=== PATIENT | female | born 1995 | race Caucasian/White ===

== ENCOUNTER 2018-04-07 12:59 | Emergency (ER) | payer OTHER ==
--- NOTE | 2018-04-07 13:04 | PDOC ---
Rapid Medical Evaluation Chief Complaint: Labor Assessment Medical Evaluation: Allergies Allergy/AdvReac Type Severity Reaction Status Date / Time shrimp Allergy Verified 11/09/17 14:28 04/07/18 13:02 pt states she is 25 weeks 3 days with lower abd pain. Pt had vaginal bleeding 3 days ago "similar to menstrual period". Pt denies bleeding now, did not call her OB. history of asthma. no acute distress in triage, cleared to go to labor and delivery for assessment. Pt denies headache or back pain. 04/07/18 15:00 Discharge Disposition - Diagnosis Preg complication NEC-unspec - Discharge Dispostion Disposition: HOME Condition at time of disposition: Stable - Referrals Referrals: Jamaal Guerrero MD [Staff Physician] - Bill Liu MD [Primary Care Provider] - - Patient Instructions Additional Instructions: DISCHARGE TO HOME CALL OWN [facility] LO[facility]ER AND MAKE APPOINTMENT TO BE SEEN TOMORROW NOTHING IN VAGINA COME TO HOSPITAL IF YOU HAVE CONTRACTIONS,VAGINAL BLEEDING ,YOU BREAK YOUR WATER OR IF YOU DO NOT FEEL THE BABY MOVING INCREASE WATER INTAKE - 8-10 GLASSES/DAY - Post Discharge Activity
[2018-04-07 14:47] VITALS: BP 140/67; PULSE 102; TEMP 98.1
[2018-04-07 14:58] LABS: URINE APPEARANCE CLEAR; URINE BILIRUBIN NEGATIVE (<2.0 mg/dL); URINE COLOR YELLOW; URINE GLUCOSE (UA) NEGATIVE (NEGATIVE); URINE KETONE NEGATIVE (NEGATIVE); URINE LEUK ESTERASE NEGATIVE (NEGATIVE); URINE NITRITE NEGATIVE (NEGATIVE); URINE PROTEIN NEGATIVE (NEGATIVE); URINE UROBILINOGEN NEGATIVE mg/dL (0.2-1.0)
== END 2018-04-07 15:30 | disposition home or self-care (01) ==
LOC: JER 12:59
DX: O26.892 Other specified pregnancy related conditions, second trimester (principal); R10.30 Lower abdominal pain, unspecified; Z3A.25 25 weeks gestation of pregnancy
CPT/HCPCS: 76801-TC; 76817-TC; 81003; 99281-25

== ENCOUNTER 2018-07-16 11:30 | Inpatient (IN) | payer OTHER ==
[2018-07-16] MEDS ORDERED: PROMETHAZINE HCL 25 MG/1 ML VIAL IVPUSH ONE (13:11)
[2018-07-16] MEDS ORDERED: BUTORPHANOL TARTRATE 1 MG/ML VIAL IVPUSH ONE ×2 (13:11→22:00)
[2018-07-16] MEDS ORDERED: DEXTROSE 5%-LACTATED RINGERS 1,000 ML IV SCH (13:15)
--- NOTE | 2018-07-16 13:17 | HP ---
Past Medical History - Primary Care Physician PCP:: Jamaal Guerrero - Admission Chief Complaint: 39 weeks, labor, obesity History of Present Illness: 23 yo f , 39 weeks, in labor, cx 4 cm, 80 vx -2 mi, bulging, fhr cat 1, irregular contraction History Source: Patient Limitations to Obtaining History: No Limitations - Past Medical History ...: 1 ...Para: 0 Psych: Yes: Depression - Past Surgical History Hx Myomectomy: No Hx Transabdominal Cerclage: No - Smoking History Smoking history: Never smoked - Alcohol/Substance Use Hx Alcohol Use: No - Social History History of Recent Travel: No Home Medications - Allergies Allergies/Adverse Reactions: Allergies Allergy/AdvReac Type Severity Reaction Status Date / Time shrimp Allergy Verified 04/07/18 14:07 shellfish Allergy Severe Swelling Uncoded 04/07/18 14:07 - Home Medications Home Medications: Ambulatory Orders NK [No Known Home Medication] 11/09/17 Review of Systems - Review of Systems Constitutional: reports: No Symptoms Eyes: reports: No Symptoms HENT: reports: No Symptoms Neck: reports: No Symptoms Cardiovascular: reports: No Symptoms Respiratory: reports: No Symptoms Gastrointestinal: reports: No Symptoms Genitourinary: reports: No Symptoms Breasts: reports: No Symptoms Reported Musculoskeletal: reports: No Symptoms Integumentary: reports: No Symptoms Neurological: reports: No Symptoms Endocrine: reports: No Symptoms Hematology/Lymphatic: reports: No Symptoms Psychiatric: reports: No Symptoms Physical Exam - Maternity Constitutional: Yes: Well Nourished, No Distress, Calm Eyes: Yes: WNL, Conjunctiva Clear, EOM Intact HENT: Yes: WNL, Atraumatic, Normocephalic Neck: Yes: WNL, Supple, Trachea Midline Cardiovascular: Yes: WNL, Regular Rate and Rhythm Breast(s): Yes: WNL - Abdominal Exam/OB Fundal Height: 40 Number of Fetuses: Single Presentation: Vertex Regularity: Irregular Intensity: Moderate Monitor Mode: External Heart Rate Location: LLQ Accelerations: Uniform Decelerations: None - Vaginal Exam/OB Vaginal Bleediing: Bloody Show Speculum Exam: No Dilatation (cm): 4 cm Effacement (%): 80 Amniotic Membrane Status: Bulging Presentation: Vertex/Position Station: -2 - Physical Exam Musculoskeletal: Yes: WNL Extremities: Yes: WNL Edema: LLE: Trace, RLE: Trace Deep Tendon Reflex Grade: Normal +2 Psychiatric: Yes: WNL Hemorrhage Risk Assessment - Risk Factors Medium Risk Factors: Yes: None High Risk Factors: Yes: Active bleeding on admission Risk Score: 3 Risk Level: High Risk Problem List - Problems (1) with 39 completed weeks gestation Code(s): Z3A.39 - 39 WEEKS GESTATION OF (2) First stage of labor established Code(s): HCN8143 - (3) Obesity Code(s): E66.9 - OBESITY, UNSPECIFIED Qualifiers: Obesity type: due to excess calories (4) Depression Code(s): F32.9 - MAJOR DEPRESSIVE DISORDER, SINGLE EPISODE, UNSPECIFIED Assessment/Plan admit, fhm, pain management, anticipate vaginal delivery
[2018-07-16 13:29] VITALS: BMI 45.1
[2018-07-16 13:32] LABS: BASO % 0.2 % (0-2.0); EOS % 1.1 % (0-4.5); HEMATOCRIT 33.5 % (32.4-45.2); HEMOGLOBIN 10.7 GM/dL (10.7-15.3); LYMPH % 24.2 % (8-40); MCH 23.3 pg (25.7-33.7); MCHC 31.9 g/dl (32.0-36.0); MEAN CELL VOLUME 72.8 fl (80-96); MONO % 4.4 % (3.8-10.2); NEUT % 70.1 % (42.8-82.8); PLATELET COUNT 264 K/MM3 (134-434); RDW 16.2 % (11.6-15.6); WHITE BLOOD COUNT 7.8 K/mm3 (4.0-10.0)
[2018-07-16 13:52] LABS: INR 0.97 (0.83-1.09); PROTHROMBIN TIME (PATIENT) 11.5 SEC (9.7-13.0)
[2018-07-16 13:55] LABS: ACTIVATED PTT 29.1 SECONDS (25.2-36.5)
[2018-07-16 14:02] LABS: ANION GAP 7 MMOL/L (8-16); BLOOD UREA NITROGEN 4 mg/dL (7-18); CALCIUM 8.9 mg/dL (8.5-10.1); CHLORIDE 105 mmol/L (98-107); CO2 24 mmol/L (21-32); CREATININE 0.4 mg/dL (0.55-1.3); GLUCOSE,RANDOM 101 mg/dL (74-106); POTASSIUM 4.1 mmol/L (3.5-5.1); SODIUM 137 mmol/L (136-145)
[2018-07-16 14:38] LABS: GAMMA GLUTAMYL TRANSPEPTIDASE 17 U/L (5-85); SGOT/AST 11 U/L (15-37); SGPT/ALT 12 U/L (13-61); URIC ACID 4.6 mg/dL (2.6-7.2)
[2018-07-16 14:39] LABS: EPI CELLS 7.6 /HPF (0-5); URINE APPEARANCE CLOUDY; URINE BACTERIA 256.4 /hpf (NEGATIVE); URINE BILIRUBIN NEGATIVE (NEGATIVE); URINE CASTS 35 /hpf (0-8); URINE COLOR DK YELLOW; URINE GLUCOSE (UA) NEGATIVE (NEGATIVE); URINE KETONE TRACE (NEGATIVE); URINE LEUK ESTERASE 2+ (NEGATIVE); URINE NITRITE NEGATIVE (NEGATIVE); URINE PROTEIN 1+ (NEGATIVE); URINE RBC 2 /hpf (0-4); URINE WBC 39 /hpf (0-5)
--- NOTE | 2018-07-16 19:16 | PN ---
Progress Note (short form) - Note Progress Note: cx 6 cm , 100 vx -2 ,mi . arom , light mec scalp electrode applied , revaluate in 1/2 hour Problem List - Problems (1) with 39 completed weeks gestation Code(s): Z3A.39 - 39 WEEKS GESTATION OF (2) First stage of labor established Code(s): [id number] - (3) Obesity Code(s): E66.9 - OBESITY, UNSPECIFIED Qualifiers: Obesity type: due to excess calories (4) Depression Code(s): F32.9 - MAJOR DEPRESSIVE DISORDER, SINGLE EPISODE, UNSPECIFIED
[2018-07-16] MEDS ORDERED: PROMETHAZINE HCL 25 MG/1 ML VIAL ONE ×2 (19:34→21:02)
[2018-07-16] MEDS ORDERED: BUTORPHANOL TARTRATE 2 MG/ML VIAL ONE ×3 (19:34→21:02)
--- NOTE | 2018-07-16 19:48 | PN ---
Progress Note (short form) - Note Progress Note: cx 9 cm, 100 vx 0 , fhr cat 1, wants pain meds , anticipating vaginal delivery soon Problem List - Problems (1) with 39 completed weeks gestation Code(s): Z3A.39 - 39 WEEKS GESTATION OF (2) First stage of labor established Code(s): [id number] - (3) Obesity Code(s): E66.9 - OBESITY, UNSPECIFIED Qualifiers: Obesity type: due to excess calories (4) Depression Code(s): F32.9 - MAJOR DEPRESSIVE DISORDER, SINGLE EPISODE, UNSPECIFIED
[2018-07-16] MEDS ORDERED: OXYTOCIN 20 UNITS in 0.9% NS 20 UNIT/1,000 ML INFUS.BAG IV ONE ×2 (20:19→23:31)
[2018-07-16] MEDS ORDERED: LIDOCAINE HCL 1% PRESERVATIVE FREE - 30ML VIAL ONE (20:21)
[2018-07-16] MEDS ORDERED: CEFAZOLIN 2 GM/D5W 2 GM/50 ML ML IVPB ONE (20:40)
[2018-07-16] MEDS ORDERED: CEFAZOLIN 1 GM/D5W 2 GM/100 ML BAG ONE (21:02)
[2018-07-16 21:19] LABS: VENOUS PC02 55.4 mmHg (41-51); VENOUS PH 7.27 (7.31-7.41)
[2018-07-16 21:22] LABS: ARTERIAL BLD GAS O2 SATURATION 66.7 % (95-98); ARTERIAL BLOOD GAS BASE EXCESS -2.5 meq/l (-2-2); ARTERIAL BLOOD GAS PCO2 43.8 mmHg (35-45); ARTERIAL BLOOD GAS pH 7.34 (7.35-7.45)
[2018-07-16 21:26] LABS: VENOUS PO2 23.4 mmHg (30-40)
[2018-07-16 21:27] LABS: ARTERIAL BLOOD GAS PO2 32.6 mmHg (80-105)
[2018-07-16] MEDS ORDERED: BISACODYL 10 MG SUPP.RECT RC PRN (21:34)
[2018-07-16] MEDS ORDERED: WITCH HAZEL 50% (TUCKS) 40 PAD/JAR PAD TP PRN (21:34)
[2018-07-16] MEDS ORDERED: IBUPROFEN 600 MG TABLET (FP) PO PRN (21:34)
[2018-07-16] MEDS ORDERED: BENZOCAINE 28 GM HEMORRHOIDAL OINTMENT TP PRN (21:34)
[2018-07-16] MEDS ORDERED: ACETAMINOPHEN 325 MG TABLET (FP) PO PRN (21:34)
[2018-07-16] MEDS ORDERED: BENZOCAINE 20% 57 GM BOTTLE TP PRN (21:34)
[2018-07-16] MEDS ORDERED: METHYLERGONOVINE MALEATE 0.2 MG/1 ML AMP IM PRN (21:34)
[2018-07-16] MEDS ORDERED: OXYTOCIN 20 UNITS in 0.9% NS 20 UNIT/1,000 ML INFUS.BAG IV SCH ×2 (21:45→23:00)
--- NOTE | 2018-07-16 21:48 | PN ---
Delivery - Delivery Vaginal Delivery: Spontaneous Type of Anesthesia: None (patient had push the baby out before i entered room, live girl 9/9 . placenta rtained and not seperated after 30 min, manual removal tried , . placenta adherant to uterine wall, difficulty to remove , some pieces had to be removed with ring forcep, appeared to be complete removal.ebl 400cc, no active vaginal bleeding post removal , ancef 2 gm given as prophylaxis) Episiotomy/Laceration: None Delivery, Single - [place] Feeding Plan Initial Plan: Elected not to breastfeed exclusively throughout hospitalization
[2018-07-17 08:09] LABS: BASO % 0.1 % (0-2.0); EOS % 0.2 % (0-4.5); HEMATOCRIT 29.3 % (32.4-45.2); HEMOGLOBIN 9.4 GM/dL (10.7-15.3); LYMPH % 18.6 % (8-40); MCH 23.2 pg (25.7-33.7); MCHC 31.9 g/dl (32.0-36.0); MEAN CELL VOLUME 72.7 fl (80-96); MEAN PLT VOLUME 9.5 fl (7.5-11.1); MONO % 5.4 % (3.8-10.2); NEUT % 75.7 % (42.8-82.8); PLATELET COUNT 259 K/MM3 (134-434); RBC 4.03 M/mm3 (3.60-5.2); RDW 16.4 % (11.6-15.6); WHITE BLOOD COUNT 12.1 K/mm3 (4.0-10.0)
[2018-07-17] MEDS: FERROUS SO4 325 MG TABLET (FP) PO SCH ×2 (09:00→18:13)
[2018-07-17] MEDS: PRENATAL VITAMINS W/ FOLIC ACID TABLET (FP) PO SCH (10:46)
--- NOTE | 2018-07-17 11:23 | PN ---
Progress Note (short form) - Note Progress Note: ppd 1 doing well, no pain, no excess vaginal bleeding CBC, BMP 07/17/18 07:39 07/16/18 13:04 Last Vital Signs Temp Pulse Resp BP Pulse Ox 98.3 F 101 H 20 152/99 100 07/17/18 00:12 07/17/18 00:12 07/17/18 00:12 07/17/18 00:12 07/16/18 21:45 abdomen soft, uterus at umbilicus, firm , non tender lochia minimal no calf tenderness impression ppd 1, s/p manual removal of placenta, no excess vaginal bleeding < H &H stable plan observation , instruction given if fever, heavy vaginal bleeding call md or ER, follow up [facility] care 4 weeks Problem List - Problems (1) with 39 completed weeks gestation Code(s): Z3A.39 - 39 WEEKS GESTATION OF (2) First stage of labor established Code(s): [id number] - (3) Obesity Code(s): E66.9 - OBESITY, UNSPECIFIED Qualifiers: Obesity type: due to excess calories (4) Depression Code(s): F32.9 - MAJOR DEPRESSIVE DISORDER, SINGLE EPISODE, UNSPECIFIED
[2018-07-17] MEDS ORDERED: SENNOSIDES/DOCUSATE COMBO (SENNA PLUS) TABLET (UD) PO PRN (22:00)
--- NOTE | 2018-07-18 05:48 | DS ---
Physical Examination Vital Signs: Vital Signs Temperature 98.6 F 07/17/18 21:51 Pulse Rate 99 H 07/17/18 21:51 Respiratory Rate 20 07/17/18 21:51 Blood Pressure 126/83 07/17/18 21:51 O2 Sat by Pulse Oximetry (%) 99 07/17/18 20:58 Constitutional: Yes: Well Nourished, No Distress, Calm Eyes: Yes: WNL, Conjunctiva Clear, EOM Intact HENT: Yes: WNL, Atraumatic, Normocephalic Neck: Yes: WNL, Supple, Trachea Midline Cardiovascular: Yes: WNL, Regular Rate and Rhythm Respiratory: Yes: WNL, Regular, CTA Bilaterally Gastrointestinal: Yes: WNL, Normal Bowel Sounds Musculoskeletal: Yes: WNL Extremities: Yes: WNL Edema: No Integumentary: Yes: WNL Neurological: Yes: WNL, Alert, Oriented ...Motor Strength: WNL Psychiatric: Yes: WNL Labs: CBC, BMP 07/17/18 07:39 07/16/18 13:04 Discharge Summary Reason For Visit: LABOR ADMISSION Current Active Problems Depression (Acute) First stage of labor established (Acute) Obesity (Acute) with 39 completed weeks gestation (Acute) Procedures: Principal: Hospital Course: Patient presented in labor She had a with manual removal of the placenta She received antibiotics for 24 hours after delivery She met all milestones She was discharged home on PPD#2 in stable condition Zoey Roberto MD Condition: Stable - Instructions Diet, Activity, Other Instructions: Regular Diet Referrals: Mary Roberto MD [Staff Physician] - Disposition: HOME - Home Medications Comprehensive Discharge Medication List: Ambulatory Orders Ibuprofen [Motrin -] 600 mg PO QID PRN #28 tablet 07/18/18
[2018-07-18 08:24] VITALS: BP 124/72; PULSE 80; TEMP 98.1
[2018-07-18] MEDS: FERROUS SO4 325 MG TABLET (FP) PO SCH (08:58)
[2018-07-18] MEDS: PRENATAL VITAMINS W/ FOLIC ACID TABLET (FP) PO SCH (08:59)
== END 2018-07-18 14:00 | disposition home or self-care (01) | DRG 560 ==
LOC: JDEL 11:30 → JLDR 12:40 → J3W 23:54
PROVIDERS: ADMIT Obstetrics & Gynecology; ATTEND Obstetrics & Gynecology
PROC: 10E0XZZ Delivery of Products of Conception, External Approach (ICD-10-PCS; principal; 2018-07-16)
DX: O99.214 Obesity complicating childbirth (principal); E66.9 Obesity, unspecified; O99.344 Other mental disorders complicating childbirth; F32.9 Major depressive disorder, single episode, unspecified; Z3A.39 39 weeks gestation of pregnancy; Z37.0 Single live birth
CPT/HCPCS: 36415; 36600; 59409; 80048; 81003; 82803; 82977; 83010; 84450; 84460; 84550; 85025; 85032; 85044; 85610; 85730; 86593; 86850; 86900; 86901

== ENCOUNTER 2018-08-14 08:12 | Emergency (ER) | payer OTHER ==
[2018-08-14 08:19] VITALS: BP 141/70; PULSE 86; TEMP 98.2; BMI 41.0
[2018-08-14] MEDS ORDERED: FAMOTIDINE 20 MG/50 ML IVPB 20 MG/50 ML MG IVPB ONE ×2 (08:32→08:36)
[2018-08-14] MEDS ORDERED: SODIUM CHLORIDE 500 ML IV STA (08:32)
[2018-08-14] MEDS ORDERED: ONDANSETRON *ODT* 4 MG TABLET SL ONE (08:32)
[2018-08-14] MEDS ORDERED: MAG HYDROX/AL HYDROX/SIMETH 30 ML UNIT-DOSE CUP PO ONE (08:33)
[2018-08-14] MEDS ORDERED: MAG HYDROX/AL HYDROX/SIMETH 30 ML UNIT-DOSE CUP ONE (08:36)
[2018-08-14] MEDS ORDERED: ONDANSETRON *ODT* 4 MG TABLET ONE (08:36)
--- NOTE | 2018-08-14 08:43 | PDOC ---
History of Present Illness - General Chief Complaint: Pain Stated Complaint: ABDOMINAL PAIN Time Seen by Provider: 08/14/18 08:28 History Source: Patient Exam Limitations: Clinical Condition - History of Present Illness Initial Comments: 08/14/18 08:40 Patient with no sig PMHx present with complains of epigastric pain, nausea, vomiting and diarrhea since this AM. Patient report vomiting 3 times this AM. Report 1 episode of diarrhea. Denies fever, chills, weakness, dizziness, SOB, CP. pt report recent vaginal delivery a month ago. Denies any other symptoms Timing/Duration: 4-6 hours Past History - Past Medical History Allergies/Adverse Reactions: Allergies Allergy/AdvReac Type Severity Reaction Status Date / Time shrimp Allergy Verified 08/14/18 08:15 shellfish Allergy Severe Swelling Uncoded 08/14/18 08:15 Home Medications: Ambulatory Orders Ibuprofen [Motrin -] 600 mg PO QID PRN #28 tablet 07/18/18 Famotidine [Pepcid] 20 mg PO DAILY #10 tablet 08/14/18 Mag Hydrox/Aluminum Hyd/Simeth [Maalox Advanced Suspension] 30 ml PO Q8H PRN # 200 ml 08/14/18 Ondansetron [Zofran Odt -] 4 mg SL Q8H PRN #12 od.tablet 08/14/18 Asthma: Yes Cancer: No Cardiac Disorders: No COPD: No Diabetes: No HTN: No Psychiatric Problems: Yes (DEPRESSION) Seizures: No Thyroid Disease: No - Immunization History Immunization Up to Date: Yes - Suicide/Smoking/Psychosocial Hx Smoking History: Never smoked Hx Alcohol Use: No Drug/Substance Use Hx: No Hx Substance Use Treatment: No Review of Systems - Review of Systems Able to Perform ROS?: Yes Is the patient limited [place] proficient: No Constitutional: No: Chills, Fever, Malaise HEENTM: No: Symptoms Reported Respiratory: No: Symptoms reported Cardiac (ROS): No: Symptoms Reported ABD/GI: Yes: Symptoms Reported, See HPI, Diarrhea, Nausea, Vomiting, Abdominal cramping (epigastric). No: Abdominal Distended, Blood Streaked Bowels, Constipated, Difficulty Swallowing, Poor Appetite, Rectal Bleeding, Indigestion : No: Burning, Dysuria, Discharge, Frequency, Urgency Integumentary: No: Symptoms Reported All Other Systems: Reviewed and Negative *Physical Exam - Vital Signs Last Vital Signs Temp Pulse Resp BP Pulse Ox 98.2 F 86 16 141/70 99 08/14/18 08:15 08/14/18 08:15 08/14/18 08:15 08/14/18 08:15 08/14/18 08:15 - Physical Exam Comments: 08/14/18 08:38 GENERAL: Well developed, well nourished. Awake and alert in mild acute distress. HEENT: Normocephalic, atraumatic. PERRLA, EOMI. No conjunctival pallor. Sclera are non-icteric. Moist mucous membranes. Oropharynx is clear. NECK: Supple. Full ROM. CARDIOVASCULAR: Regular rate and rhythm. No murmurs, rubs, or gallops. Distal pulses are 2+ and symmetric. PULMONARY: No evidence of respiratory distress. Lungs clear to auscultation bilaterally. No wheezing, rales or rhonchi. ABDOMINAL: Soft. mild TTP to epigastric region. Non-distended. No rebound or guarding. No organomegaly. diffused hyperactive bowel sounds. MUSCULOSKELETAL Normal range of motion at all joints. SKIN: Warm and dry. Normal capillary refill. No rashes. No cyanosis. NEUROLOGICAL: Alert, awake, appropriate. Gait is normal without ataxia. PSYCHIATRIC: Cooperative. Good eye contact. Appropriate mood General Appearance: Yes: Nourished, Appropriately Dressed, Mild Distress ED Treatment Course - LABORATORY CBC & Chemistry Diagram: 08/14/18 08:54 08/14/18 08:54 Medical Decision Making - Medical Decision Making 08/14/18 08:42 Patient with no sig PMHx present with complains of epigastric pain, nausea, vomiting and diarrhea since this AM. Patient report vomiting 3 times this AM. Report 1 episode of diarrhea. Denies fever, chills, weakness, dizziness, SOB, CP. pt report recent vaginal delivery a month ago. Denies any other symptoms Exam significant for mild epigastric tenderness w/o guarding or rebound. Diffused increased bowel sounds. Symptoms likely viral gastroenteritis vs bacteria gastroenteritis vs cholecystitis CBC, CMP lipase labs ordered. UA,UX labs ordered. Zofran 4mg SL, Pepcid 20mg IVPB, IV hydration with NS ordered. reassess after labs 08/14/18 10:00 CBC and cmp labs wnl. Patient report feeling much better after IVF, zofran and pepcid. Patient stable for discharge on pepcid, zofran and maalox with GI follow -up prn *DC/Admit/Observation/Transfer Diagnosis at time of Disposition: Gastroenteritis Nausea & vomiting Qualifiers: Vomiting type: bilious vomiting Qualified Code(s): R11.14 - Bilious vomiting - Discharge Dispostion Disposition: HOME Condition at time of disposition: Stable Decision to Admit order: No - Prescriptions Prescriptions: Famotidine [Pepcid] 20 mg PO DAILY #10 tablet Mag Hydrox/Aluminum Hyd/Simeth [Maalox Advanced Suspension] 30 ml PO Q8H PRN # 200 ml PRN Reason: abdominal discomfort Ondansetron [Zofran Odt -] 4 mg SL Q8H PRN #12 od.tablet PRN Reason: nausea - Referrals Referrals: Bill Liu MD [Primary Care Provider] - - Patient Instructions Printed Discharge Instructions: DI for Viral Gastroenteritis -- Adult Additional Instructions: Your labs was normal. Increase fluid intake. Take medications as prescribed. Follow-up with PCP - Post Discharge Activity
[2018-08-14 09:14] LABS: BASO % 0.9 % (0-2.0); EOS % 2.6 % (0-4.5); HEMATOCRIT 36.7 % (32.4-45.2); HEMOGLOBIN 11.3 GM/dL (10.7-15.3); MCH 22.6 pg (25.7-33.7); MCHC 30.8 g/dl (32.0-36.0); MEAN CELL VOLUME 73.5 fl (80-96); MEAN PLT VOLUME 9.5 fl (7.5-11.1); MONO % 4.6 % (3.8-10.2); NEUT % 61.9 % (42.8-82.8); PLATELET COUNT 313 K/MM3 (134-434); WHITE BLOOD COUNT 6.4 K/mm3 (4.0-10.0)
[2018-08-14 09:47] LABS: ALBUMIN 3.6 g/dl (3.4-5.0); ALK PHOS 90 U/L (45-117); ANION GAP 7 MMOL/L (8-16); BILIRUBIN,TOTAL 0.4 mg/dL (0.2-1); BLOOD UREA NITROGEN 10 mg/dL (7-18); CALCIUM 9.1 mg/dL (8.5-10.1); CHLORIDE 107 mmol/L (98-107); CO2 26 mmol/L (21-32); GLUCOSE,RANDOM 100 mg/dL (74-106); LIPASE 134 U/L (73-393); POTASSIUM 3.9 mmol/L (3.5-5.1); SGOT/AST 30 U/L (15-37); SGPT/ALT 23 U/L (13-61); SODIUM 140 mmol/L (136-145); TOT PROT 7.5 g/dl (6.4-8.2)
[2018-08-14 11:53] LABS: CREATININE 0.7 mg/dL (0.55-1.3)
== END 2018-08-14 10:36 | disposition home or self-care (01) ==
LOC: JER 08:12
PROC: 3E033GC Introduction of Other Therapeutic Substance into Peripheral Vein, Percutaneous Approach (ICD-10-PCS; principal; 2018-08-14)
DX: K52.9 Noninfective gastroenteritis and colitis, unspecified (principal); R11.14 Bilious vomiting
CPT/HCPCS: 36415; 80053; 83690; 84702; 85025; 96365; 99282-25; Q0162

== ENCOUNTER 2024-03-09 09:44 | Emergency (ER) | payer OTHER ==
[2024-03-09 09:50] VITALS: BP 128/85; PULSE 83; RESP 18; TEMP 97.9; BMI 42.3
== END 2024-03-09 12:08 | disposition home or self-care (01) ==
LOC: JER 09:44 → JERFT 09:44
DX: O20.0 Threatened abortion (principal); Z3A.00 Weeks of gestation of pregnancy not specified
CPT/HCPCS: 36415; 84702; 99283-25

== ENCOUNTER 2024-03-22 09:30 | Emergency (ER) | payer OTHER ==
[2024-03-22 09:41] VITALS: RESP 16; TEMP 97.7; BMI 43.5
[2024-03-22 12:52] VITALS: BP 128/66; PULSE 88
[2024-03-22] MEDS ORDERED: METHOTREXATE SODIUM/PF 25 MG/ML VIAL IM ONE (12:54)
[2024-03-22] MEDS: METHOTREXATE SODIUM/PF 25 MG/ML VIAL IM ONE ×2 (14:08)
== END 2024-03-22 14:09 | disposition home or self-care (01) ==
LOC: JER 09:30
DX: O20.0 Threatened abortion (principal); Z3A.00 Weeks of gestation of pregnancy not specified
CPT/HCPCS: 36415; 76817-TC; 84702; 99284-25; J9260